=== PATIENT | female | born 2000 | race Caucasian/White ===

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

== ENCOUNTER 2018-05-03 21:28 | Emergency (ER) | payer OTHER ==
[2018-05-04] MEDS ORDERED: Famotidine TAB* 20 MG PO ONE (00:20)
[2018-05-04] MEDS ORDERED: diPHENhydraMINE PO* 25 MG PO ONE (00:20)
--- NOTE | 2018-05-04 00:20 | ED ---
Allergic Reaction/Systemic - HPI Summary HPI Summary: 18-year-old female presents with hives today. She states that she ate a bunch of food this morning and developed hives later in the day. She states that she did not take anything for her symptoms. States has hives across the body. She states they're itchy. No chest pain or shortness breath. No sore throat. No bowel pain. No nausea and vomiting. denies any new soaps or products. Symptoms are not getting worse. Does have allergy testing tomorrow. - History of Current Complaint Chief Complaint: EDAllergicReaction Time Seen by Provider: 05/03/18 23:52 Pain Intensity: 0 - Allergies/Home Medications Allergies/Adverse Reactions: Allergies Allergy/AdvReac Type Severity Reaction Status Date / Time Penicillins Allergy Hives Verified 05/03/18 21:40 PMH/Surg Hx/FS Hx/Imm Hx Endocrine/Hematology History: Denies: Hx Anticoagulant Therapy Respiratory History: Denies: Hx Asthma History: Reports: Other Problems/Disorders - Ovarian cyst Sensory History: Reports: Hx Contacts or Glasses Denies: Hx Legally Blind, Hx Deafness Opthamlomology History: Reports: Hx Contacts or Glasses Denies: Hx Legally Blind - Surgical History Surgery Procedure, Year, and Place: none Infectious Disease History: No Infectious Disease History: Denies: Traveled Outside the [place] in Last 30 Days - Family History Known Family History: Negative: Diabetes - Social History Alcohol Use: None Hx Substance Use: No Substance Use Type: Reports: None Smoking Status (MU): Never Smoked Tobacco Review of Systems Negative: Fever Negative: Chest Pain Negative: Shortness Of Breath Positive: Rash All Other Systems Reviewed And Are Negative: Yes Physical Exam Triage Information Reviewed: Yes Vital Signs On Initial Exam: Initial Vitals Temp Pulse Resp BP Pulse Ox 98.2 F 62 16 109/68 99 05/03/18 21:35 05/03/18 21:35 05/03/18 21:35 05/03/18 21:35 05/03/18 21:35 Vital Signs Reviewed: Yes Appearance: Positive: Well-Appearing Skin: Positive: Warm, Dry, Other - urticaria across body Head/Face: Positive: Normal Head/Face Inspection Eyes: Positive: Normal, EOMI, SRINATH, Conjunctiva Clear ENT: Positive: Normal ENT inspection, Pharynx normal, TMs normal Respiratory/Lung Sounds: Positive: Clear to Auscultation, Breath Sounds Present Cardiovascular: Positive: Normal, RRR Abdomen Description: Positive: Nontender, Soft Bowel Sounds: Positive: Present Musculoskeletal: Positive: Normal Neurological: Positive: Normal Psychiatric: Positive: Normal Diagnostics - Vital Signs Vital Signs Temp Pulse Resp BP Pulse Ox 05/03/18 21:35 98.2 F 62 16 109/68 99 - Laboratory Lab Statement: Any lab studies that have been ordered have been reviewed, and results considered in the medical decision making process. Allergic Reaction Course/Dx - Course Course Of Treatment: 18-year-old female presents with hives today. She states that she ate a bunch of food this morning and developed hives later in the day. She states that she did not take anything for her symptoms. States has hives across the body. She states they're itchy. No chest pain or shortness breath. No sore throat. No bowel pain. No nausea and vomiting. denies any new soaps or products. Symptoms are not getting worse. Does have allergy testing tomorrow. On exam urticaria across body. Told needs to continue Benadryl and prednisone. Patient understands agrees with plan. - Diagnoses Differential Diagnosis/HQI/PQRI: Positive: Anaphylaxis, Local Allergic Reaction , Urticaria Provider Diagnoses: Urticaria Discharge - Sign-Out/Discharge Documenting (check all that apply): Patient Departure Patient Received Moderate/Deep Sedation with Procedure: No - Discharge Plan Condition: Good Disposition: HOME Prescriptions: hydrOXYzine HCL TAB* [Atarax 25 MG TAB*] 25 mg PO BID #10 tab predniSONE TAB* [Deltasone TAB*] 50 mg PO DAILY #4 tab Patient Education Materials: Urticaria (ED) Referrals: No Primary Care Phys,[facility] [Primary Care Provider] - Additional Instructions: Take Benadryl every 6 hours, use hydroxyzine every 6 hours during the day Take steroid once a day for 4 days Can apply cream with hydrocortisone to area for itchy Return to ED if develop SOB, difficulty swallowing or any new or worsening symptoms - Billing Disposition and Condition Condition: GOOD Disposition: Home
[2018-05-04] MEDS ORDERED: predniSONE TAB* 20 MG PO ONE (00:21)
[2018-05-04 00:37] VITALS: BP 103/59
== END 2018-05-04 00:36 | disposition home or self-care (01) ==
LOC: ED 21:28
DX: L50.9 Urticaria, unspecified (principal); R21 Rash and other nonspecific skin eruption; Z88.0 Allergy status to penicillin
CPT/HCPCS: 99282; A9270-GY; J7512